=== PATIENT | male | born 1940 | race Caucasian/White ===

== ENCOUNTER 2018-06-10 08:32 | Day surgery (SDC) | payer MEDICARE, SELFPAY ==
--- NOTE | 2018-06-04 09:40 | EKG12_ITS ---
Test Reason : PRE-OP Blood Pressure : / mmHG Vent. Rate : 083 BPM Atrial Rate : 083 BPM P-R Int : 132 ms QRS Dur : 112 ms QT Int : 406 ms P-R-T Axes : 040 040 039 degrees QTc Int : 477 ms Normal sinus rhythm Right bundle branch block Abnormal ECG Confirmed by JEFRY KRIHSNAN, PELON ([id number]), editor & co founder DORA CISNEROS ([id number] on 06/05/2018 1:27:39 PM Referred By: Emilio Howard Confirmed By:PELON CAPPS MD
[2018-06-04 10:11] LABS: Hemoglobin 14.6 g/dl (13.0-16.5); Mean Corp Hgb Conc 33.2 g/gl (32-36); Mean Corpuscular Hgb 29.5 pg (27.0-32.0); Mean Corpuscular Volume 88.9 fL (80-94); Mean Platelet Vol. 10.1 fl (6.2-12.0); Platelet Count 173 K/mm3 (150-450); RBC Distribution Width CV 12.6 % (11.6-14.6); RBC Distribution Width SD 40.1 fl (35.1-43.9); Red Blood Count 4.95 M/mm3 (4.6-6.2); White Blood Count 8.4 K/mm3 (4.4-11.0)
[2018-06-04 10:15] LABS: Scan Indicated on CBC? Y/N NO
[2018-06-04 10:16] LABS: Hemoglobin A1c 6.8 % (4.2-6.3)
[2018-06-04 10:34] LABS: ALB/GLOB Ratio 1.2 RATIO (0.9-2.4); AST(SGOT) 16 U/L (15-37); Alanine Aminotransfer ALT/SGPT 20 U/L (16-61); Alkaline Phosphatase 89 U/L (45-117); Anion Gap 13 (5-15); BUN 24 mg/dL (7-18); BUN/Creat Ratio 18.5 RATIO (10-20); Calcium,Total 8.8 mg/dL (8.5-10.1); Chloride 109 mmol/L (98-107); EST Glomerular Filtration Rate 57 mL/min (>60); Est Glom Filt Rate - Afr Amer 69 mL/min (>60); Globulin 3.2 g/dL (2.2-4.2); Glucose 174 mg/dL (74-106); Protein, Total 7.2 g/dL (6.4-8.2); Sodium Level 140 mmol/L (136-145)
--- NOTE | 2018-06-10 | LIP_PTH ---
PATIENT: POWER TOMAS LOC: [facility] U#:[id number] AGE/SX: 77/M ROOM: RE06/10/[address]: Dr. Emilio Howard MD : [id number] BED: DIS: 06/10/2018 SPEC #: [id number] RECD: 06/10/18 15:17 STATUS: MELODY REJesu #: [id number] LUTHER: 06/10/18 00:[address]: Emilio Howard DEPT: SURGICAL PATHOLOGY RECD BY: Fabian Adams ENTERED: 06/11/18 08:18 SP TYPE: LIPOMA OTHR DR: Dr. Cullen Howard III, MD Tissues: LIPOMA OF CORD Procedures: Surgery Specimen Level III HEADER OPERATION: Hernia, inguinal with mesh PRE-OP DIAGNOSIS: Inguinal hernia of right side TISSUE SUBMITTED: Cord lipoma MICROSCOPIC DIAGNOSIS Cord lipoma: Pieces of mature adipose tissue, consistent with lipoma. SJ:merlin 06/12/18 MICROSCOPIC DESCRIPTION Slides are reviewed. GROSS DESCRIPTION Received in fixative is one container labeled with the patient's name and designated cord lipoma. The specimen consists of two pieces of yellow adipose tissue measuring 8.5 x 3 x 2 cm and 1.5 x 1.5 x 0.5 cm. Sections reveal yellow adipose cut surfaces without areas of hemorrhage, necrosis or cystic degeneration. Loading Inspector sections are submitted in two cassettes. / LEONEL:merlin 06/11/18 TC:1 CPT: 23093
[2018-06-10 08:55] VITALS: BP 134/83; PULSE 90; RESP 14; TEMP 36.5; O2SAT 99; BMI 26.8
[2018-06-10 09:36] LABS: Bedside Glucose 148 mg/dL (70-110)
--- NOTE | 2018-06-10 11:29 | PCM.DC.GS ---
Discharge Diet: Light diet - advance as tolerated - if you have questions about your diet instructions, please talk to you doctor. Discharge Activity: May Not Drive - for 1 week or while taking narcotic pain medicine. May shower in (days): 1 Lifting Restrictions: 10 pounds Call your doctor if your incision/area has: Continuous Slow Oozing, Sudden Increased Bleeding, Increased Pain/ Swelling, Increased Redness, Foul Smelling Discharge Call your doctor if you observe: Fever of 101 or Higher Suture Line Care: Avoid Pulling/Pushing, Avoid Pinching/Bending Additional Dressing/Incision Instructions:: Change or remove dressing in 4 days. Leave steri-strips in place for 1 week. Additional Instructions: You may resume your Xarelto tomorrow-- please. Allergies/Adverse Reactions: Allergies No Known Allergies Allergy (Verified 06/09/18 13:38) Medications to take at Discharge losartan 100 mg tablet 100 mg PO QDAY 05/05/18 metformin 1,000 mg tablet 1,000 mg PO BID 05/05/18 rivaroxaban 20 mg tablet 20 mg PO QDAY 05/05/18 simvastatin 20 mg tablet 20 mg PO QHS 05/05/18 Acetaminophen [Tylenol Arthritis] 650 mg PO Q6H 06/03/18 Hydrocodone Bitart/Apap 5-325 [[place] 5MG-325MG] 1 tablet PO Q6H PRN PRN 3 Days #8 tablet 06/10/18 The following prescriptions were given: Hydrocodone Bitart/Apap 5-325 [[place] 5MG-325MG] 1 tablet PO Q6H PRN PRN 3 Days #8 tablet PRN Reason: Pain Primary Care Physician: Cullen Howard III, MD [Primary Care Provider] - Test Results: Test results from this visit will be discussed in further detail at your follow-up appointment, if applicable. Please Follow Up With: Emilio Howard MD - [phone] When: Call to make an appointment to be seen in about 10 days.
[2018-06-10] MEDS: Cefazolin 2 GM in 0.9% Normal Saline 100 ML IV (11:38)
[2018-06-10] MEDS: Bupivacaine Mpf 0.5% 30 ML VIAL (11:51)
--- NOTE | 2018-06-10 12:43 | PCM.OPRPT ---
Problem List (1) Inguinal hernia of right side without obstruction or gangrene Status: Acute Report of Operation Date of Procedure: 06/10/18 Pre-Operative Diagnosis: Right inguinal hernia Post-Operative Diagnosis: Indirect right inguinal hernia with cord lipoma Surgery/Procedure Performed:: Cherri right inguinal herniorrhaphy Description of Surgical Findings:: Timeout informed consent was obtained. 77-year-old gentleman was taken the operating. He was placed on the table. Underwent monitored anesthesia care local anesthetic. The right groin was sterilely prepped and draped. 1% lidocaine mixed 50-50 with 0.5% Marcaine was used as local anesthetic. A total 34 cc was used. Local was instilled. A transverse incision was made in the right groin. Sharp dissection carried down through the substance tissue. Circumferential control was seen in the cord structures. The ileal nerve identified and protected. Cord lipoma was identified this was dissected to the internal ring and then ligated there with 3-0 Vicryl. Indirect sac was identified it was dissected free to the internal ring and then inverted. The transversalis fascia was approximated to itself from the pubic tubercle to the internal ring with a running 3-0 Ethibond. A preshaped keyhole piece of mesh Bard mesh lot number [id number] reference #[id number] expiry date 02/16/2023 was utilized. It was secured around the internal ring taking care to preserve the ileal nerve inguinal nerve with cord structures. The mesh was secured to itself laterally with a 3-0 Ethibond. The tails were shortened there were tucked beneath the external oblique. The mesh nicely overlaid the pubic tubercle direct and indirect space. It was secured in position with multiple interrupted 3-0 Ethibond sutures securing it to the aponeurosis of the internal/external oblique and the shelving edge of Poupart's. Good placement and approximation was achieved. The external oblique was approximated with interrupted [id number]-gm-[id number] sutures of 3-0 Vicryl. Subcutaneous tissues proximate interrupted 4-0 Monocryl. Skin edges proximate running septic or 4-0 Monocryl. Steri-Strips Telfa and OpSite dressings applied. Sponge and instrument and needle counts were reported the surgeon be correct. Blood loss was minimal. Specimens include the cord lipoma. Drains none. Blood loss minimal. He was taken to the recovery area in satisfactory condition no apparent complication. Emilio Howard M.D., F.A.C.S. Type of Anesthesia:: Local MAC Anesthesiologist: Jacob Ignacio
--- NOTE | 2018-06-10 12:47 | OP.PCM_ITS ---
Problem List (1) Inguinal hernia of right side without obstruction or gangrene Status: Acute Report of Operation Date of Procedure: 06/10/18 Pre-Operative Diagnosis: Right inguinal hernia Post-Operative Diagnosis: Indirect right inguinal hernia with cord lipoma Surgery/Procedure Performed:: Cherri right inguinal herniorrhaphy Description of Surgical Findings:: Timeout informed consent was obtained. 77-year-old gentleman was taken the operating. He was placed on the table. Underwent monitored anesthesia care local anesthetic. The right groin was sterilely prepped and draped. 1% lidocaine mixed 50-50 with 0.5% Marcaine was used as local anesthetic. A total 34 cc was used. Local was instilled. A transverse incision was made in the right groin. Sharp dissection carried down through the substance tissue. Circumferential control was seen in the cord structures. The ileal nerve identified and protected. Cord lipoma was identified this was dissected to the internal ring and then ligated there with 3-0 Vicryl. Indirect sac was identified it was dissected free to the internal ring and then inverted. The transversalis fascia was approximated to itself from the pubic tubercle to the internal ring with a running 3-0 Ethibond. A preshaped keyhole piece of mesh Bard mesh lot number [id number] reference #[id number] expiry date 02/16/2023 was utilized. It was secured around the internal ring taking care to preserve the ileal nerve inguinal nerve with cord structures. The mesh was secured to itself laterally with a 3-0 Ethibond. The tails were shortened there were tucked beneath the external oblique. The mesh nicely overlaid the pubic tubercle direct and indirect space. It was secured in position with multiple interrupted 3-0 Ethibond sutures securing it to the aponeurosis of the internal/ external oblique and the shelving edge of Poupart's. Good placement and approximation was achieved. The external oblique was approximated with interrupted [id number]-tc-etcbe sutures of 3-0 Vicryl. Subcutaneous tissues proximate interrupted 4-0 Monocryl. Skin edges proximate running septic or 4-0 Monocryl. Steri-Strips Telfa and OpSite dressings applied. Sponge and instrument and needle counts were reported the surgeon be correct. Blood loss was minimal. Specimens include the cord lipoma. Drains none. Blood loss minimal. He was taken to the recovery area in satisfactory condition no apparent complication. Emilio Howard M.D., F.A.C.S. Type of Anesthesia:: Local MAC Anesthesiologist: Jacob Ignacio
[2018-06-10 12:52] VITALS: BP 112/70; BP 134/83; PULSE 72; RESP 16; TEMP 36.3; O2SAT 96
[2018-06-10 12:57] VITALS: BP 111/76; BP 134/83; PULSE 76; RESP 16; O2SAT 96
[2018-06-10 13:02] VITALS: BP 117/74; BP 134/83; PULSE 80; RESP 16; O2SAT 96
[2018-06-10 13:07] VITALS: BP 117/74; BP 126/78; BP 134/83; PULSE 70; PULSE 76; RESP 16; TEMP 36.2; O2SAT 96
[2018-06-10 14:33] VITALS: BP 134/83; BP 170/84; PULSE 70; RESP 18; TEMP 36.4; O2SAT 100
== END 2018-06-10 14:36 | disposition home or self-care (01) ==
LOC: SDC 08:33 → AC 08:34
PROVIDERS: Family Provider Family Medicine; PCP Family Medicine; Visit Provider Surgery
PROC: (CPT 49505; principal; 2018-06-10 10:35)
DX: K40.90 Unilateral inguinal hernia, without obstruction or gangrene, not specified as recurrent (principal); D17.6 Benign lipomatous neoplasm of spermatic cord; I10 Essential (primary) hypertension; E11.9 Type 2 diabetes mellitus without complications; M19.90 Unspecified osteoarthritis, unspecified site; F32.9 Major depressive disorder, single episode, unspecified; F41.9 Anxiety disorder, unspecified; E78.00 Pure hypercholesterolemia, unspecified; Z86.718 Personal history of other venous thrombosis and embolism; Z79.01 Long term (current) use of anticoagulants; Z79.899 Other long term (current) drug therapy; Z87.891 Personal history of nicotine dependence
CPT/HCPCS: 49505; 36415; 80053; 82962; 83036; 85027; 88304; 93005; J7120; C1781

== ENCOUNTER 2020-11-23 13:11 | Outpatient (RCR) | payer MEDICARE, SELFPAY ==
[2020-11-23] MEDS: COVID-19 VACC, MRNA(PFIZER)/PF 30 MCG/0.3 ML SYRINGE IM (16:47)
[2020-12-14] MEDS: COVID-19 VACC, MRNA(PFIZER)/PF 30 MCG/0.3 ML SYRINGE IM (15:54)
== END 2021-02-27 23:59 ==
LOC: IMMUN 13:11
PROVIDERS: PCP Family Medicine; Visit Provider Family Medicine
DX: Z23 Encounter for immunization (principal)
CPT/HCPCS: 0001A; 0002A; 91300

== ENCOUNTER 2024-02-07 10:42 | Emergency (ER) | payer MEDICARE, SELFPAY ==
[2024-02-07 10:43] VITALS: BP 97/60; PULSE 113; RESP 16; TEMP 35.9; O2SAT 98; BMI 19.5
--- NOTE | 2024-02-07 11:28 | RAD_ITS ---
STUDY: X-RAY - RIGHT SHOULDER REASON FOR EXAM: Male, 83 years old. In the TECHNIQUE: 4 view(s) of the shoulder. COMPARISON: None. FINDINGS: There is no evidence of fracture or dislocation. There are advanced degenerative changes. There are no radiodense foreign bodies. RAD/Shoulder min 2 Views IMPRESSION: No fracture or dislocation in the right shoulder. Advanced degenerative change. Electronically Signed: Mckinley Kern MD at 13:11 EDT ,
--- NOTE | 2024-02-07 11:28 | CT_ITS ---
STUDY: CT BRAIN WITHOUT CONTRAST REASON FOR EXAM: Male, 83 years old. Injury RADIATION DOSAGE (If Supplied By Facility): CTDIvol = ( 45 ) mGy, DLP = ( 796 ) mGycm TECHNIQUE: Transaxial CT imaging of the brain was performed without administration of intravenous contrast material. Individualized dose optimization techniques were used for this CT. COMPARISON: No relevant prior comparison study available FINDINGS: PARENCHYMA: There is no acute bleed or infarct. There are chronic ischemic and atrophic changes. VENTRICLES: There is no hydrocephalus. MASTOID AIR CELLS AND PARANASAL SINUSES: The visualized paranasal sinuses are clear. The mastoid air cells are clear. BONES: There is no skull fracture. SOFT TISSUES: The visualized soft tissues are within normal limits. CT/Brain/Head without Contrast IMPRESSION: No acute intracranial abnormality. Chronic ischemic and atrophic changes. Electronically Signed: Mckinley Kern MD at 12:50 EDT ,
--- NOTE | 2024-02-07 11:28 | RAD_ITS ---
STUDY: X-RAY - LEFT ELBOW REASON FOR EXAM: Male, 83 years old. Injury TECHNIQUE: 3 view(s) of the elbow. COMPARISON: None. FINDINGS: There is no evidence of fracture or dislocation. There are advanced degenerative changes. There are no radiodense foreign bodies. RAD/Elbow min 3 Views IMPRESSION: No fracture or dislocation in the left elbow. Advanced degenerative change. Electronically Signed: Mckinley Kern MD at 13:10 EDT ,
--- NOTE | 2024-02-07 11:29 | EX.ED.UPPERE ---
HPI History of Present Illness Chief Complaint: Upper Extremity Injury Informant: patient and family Narrative Narrative: 83-year-old male presenting to the emergency room with a chief complaint of fall. Patient lives alone family checks on him frequently. This morning he was taking a shower when he sustained a fall. He states that it is not uncommon for him to have problems with his equilibrium. Reportedly he laid in the shower for about 3 hours. He does not have a life alert did not have access to his phone. Family states that he has fallen 2 times previously in his bedroom. They and him have talked about palliative care. They have talked now about life alert and getting help inside the home which she is now amendable to. Family states that over recently he seems to be repeating himself. Patient notes pain in the left shoulder with swelling and inability to raise his arm up. He notes abrasion to the left elbow right medial distal foot and left knee. He notes he chronically has bursal swelling of the right knee which is not bothersome to him other than from a cosmetic standpoint. He takes Xarelto as a blood thinner. [facility] Medical History Inguinal hernia of right side without obstruction or gangrene Hemorrhoid GERD (gastroesophageal reflux disease) Anxiety Osteoarthritis Back pain Diabetes type 2, controlled DVT (deep venous thrombosis) Home Medications ?Medication ?Instructions ?Recorded ?Last Taken ?Type losartan 100 mg tablet (Cozaar) 100 mg PO QDAY 05/05/18 06/10/18 History metformin 1,000 mg tablet 1,000 mg PO BID 05/05/18 06/10/18 History (Glucophage) rivaroxaban 20 mg tablet (Xarelto) 20 mg PO QDAY 05/05/18 06/08/18 History simvastatin 20 mg tablet (Zocor) 20 mg PO QHS 05/05/18 Unknown History acetaminophen 650 mg 650 mg PO Q6H 06/03/18 06/10/18 History tablet,extended release hydrocodone-acetaminophen 5-325mg 1 tab PO Q6H PRN PRN Pain 3 days 06/10/18 Unknown Rx 5mg-325mg #8 tabs sertraline 50 mg tablet 50 mg PO DAILY 02/07/24 Unknown History Allergy/AdvReac Type Severity Reaction Status Date / Time naproxen Allergy Unknown UNKNOWN Verified 02/07/24 10:49 lisinopril AdvReac COUGH Verified 02/07/24 10:48 Family History Father CVA (cerebral vascular accident) Diabetes Mother CVA (cerebral vascular accident) Surgical History S/P right inguinal hernia repair (~06/15/18) History of left inguinal hernia repair Social History Smoking Status: Former smoker alcohol intake: never ROS ROS ED Constitutional Constitutional ED: Denies chills or weight loss Eyes Eyes: Denies change in vision or diplopia ENT ENT ED: Denies ear pain, rhinorrhea or sore throat Cardiovascular Cardiovascular: Denies chest pain, orthopnea, palpitations or racing heartbeat Respiratory/Chest Respiratory/Chest: Denies cough, dyspnea or orthopnea Gastrointestinal Gastrointestinal: Reports other Details: Decreased appetite. Decreased taste. ; Denies abdominal pain, diarrhea, nausea or vomiting Genitourinary Genitourinary ED: Denies dysuria, hematuria or urinary frequency Musculoskeletal Musculoskeletal: Reports other Details: See history of present illness ; Denies arthralgias or myalgias Integumentary Reports other Details: See history of present illness ; Denies abscess or rash Neurologic Neurologic: Denies headache(s) or weakness Psychiatric Psychiatric: Denies anxiety, depression, suicidal ideation or suicidal thoughts Endocrine Endocrinology: Denies polydipsia, polyphagia or polyuria Allergic/Immunologic Allergic/Immunologic ED: Denies mouth swelling, tongue swelling or urticaria EXAM Physical Exam Const Vital Signs: 02/07/24 10:43 Temperature 96.6 F L Temperature Source Temporal Pulse Rate 113 H Respiratory Rate 16 Blood Pressure 97/60 Blood Pressure Mean 72 Pulse Ox 98 Oxygen Delivery Method Room Air Positive well nourished and well developed General Appearance ED: well developed HEENT Reports normocephalic, head/scalp atraumatic and moist mucous membranes Eyes PERRL and EOMs intact bilaterally Neck no lymphadenopathy, supple and no JVD Resp normal respiratory effort and clear to auscultation bilaterally Cardio regular rate, regular rhythm and no murmurs GI normal to inspection, nondistended, normoactive bowel sounds and non-tender Palpation: soft Back/Spine no CVA tenderness and normal ROM Extremity Extremity Narrative: There are multiple skin tears over the lateral posterior aspect of the left elbow. None of these are able to be repaired. Some have approximated Tatian of the wound edges. Some have completely missing skin. He total area measures about 10 cm in length including the surrounding contusion. Left shoulder demonstrates proximal swelling contusion ecchymosis. He has limited range of motion secondary to pain. I do not appreciate a palpable dislocation. He has an abrasion to the anterior left knee abrasion to the medial distal right foot near the first MTP joint. General Extremety ED: Negative for edema General Extremity: Negative for edema Neuro oriented x3 and CN's II-XII intact bilaterally Sensorium / Orientation: alert Motor Exam: strength 5/5 throughout Psych mental status grossly normal Mood & Affect: Negative for depressed or tearful Skin no rashes or lesions noted and no wounds MDM MDM MDM Narrative Medical decision making narrative: My independent interpretation of the plain films of the left elbow is no acute fracture. My independent interpretation of the bilateral shoulder films which were obtained for comparison is degenerative changes but no acute fracture. CT the brain is negative for acute. Basic blood work showed a elevation in his CPK with KALI. He received 2 L of IV fluids. He has been resting comfortably. I discussed with the patient and his family the difficulties in diagnosing a rotator cuff tear in light of his trauma to the left shoulder which may be related to traumatic bursitis or just the contusion itself. I recommended he drink plenty of fluids over the next 48 hours. I have asked that he follow-up with his family doctor later this week for reassessment. Family and him are agreeable to a increase in safety at home and which includes a medic alert button and help in the home. History & Record Review Discussion w/independent historian: Patient and Family Lab Data Attestation: I reviewed the patient's lab results. Lab results narrative: Clinical Impression(s) from Imaging Studies Brain CT 02/07/24 11:28 IMPRESSION: No acute intracranial abnormality. Chronic ischemic and atrophic changes. Electronically Signed: Mckinley Kern MD at 12:50 EDT , Elbow X-Ray 02/07/24 11:28 IMPRESSION: No fracture or dislocation in the left elbow. Advanced degenerative change. Electronically Signed: Mckinley Kern MD at 13:10 EDT , Shoulder X-Ray 02/07/24 11:28 IMPRESSION: No fracture or dislocation in the right shoulder. Advanced degenerative change. Electronically Signed: Mckinley Kern MD at 13:11 EDT , Laboratory Last Values WBC 13.0 K/mm3 (4.4-11.0) H 02/07/24 12:30 Corrected WBC Cancelled 02/07/24 11:45 RBC 3.96 M/mm3 (4.6-6.2) L 02/07/24 12:30 Hgb 11.6 g/dL (13.0-16.5) L 02/07/24 12:30 Hct 36.0 % (40-54) L 02/07/24 12:30 MCV 90.9 fL (80-94) 02/07/24 12:30 MCH 29.3 pg (27.0-32.0) 02/07/24 12:30 MCHC 32.2 g/dL (32-36) 02/07/24 12:30 RDW Std Deviation 42.0 fl (35.1-43.9) 02/07/24 12:30 RDW Coeff of Marzena 12.7 % (11.6-14.6) 02/07/24 12:30 Plt Count 234 K/mm3 (150-450) 02/07/24 12:30 MPV 9.9 fl (6.2-12.0) 02/07/24 12:30 Immature Gran % (Auto) 0.400 % (0.0-0.9) 02/07/24 12:30 Neut % (Auto) 87.4 % (47-70) H 02/07/24 12:30 Lymph % (Auto) 5.3 % (19-41) L 02/07/24 12:30 [place] % (Auto) 5.9 % (0-10) 02/07/24 12:30 Eos % (Auto) 0.8 % (0-5) 02/07/24 12:30 Baso % (Auto) 0.2 % (0-1) 02/07/24 12:30 Absolute Neuts (auto) 11.4 X10^3/uL (2.0-7.7) H 02/07/24 12:30 Absolute Lymphs (auto) 0.69 X10^3/uL (0.83-4.51) L 02/07/24 12:30 Total Counted Cancelled 02/07/24 11:45 Neutrophils % (Manual) Cancelled 02/07/24 11:45 Band Neutrophils % Cancelled 02/07/24 11:45 Lymphocytes % (Manual) Cancelled 02/07/24 11:45 Monocytes % (Manual) Cancelled 02/07/24 11:45 Eosinophils % (Manual) Cancelled 02/07/24 11:45 Basophils % (Manual) Cancelled 02/07/24 11:45 Metamyelocytes % Cancelled 02/07/24 11:45 Myelocytes % Cancelled 02/07/24 11:45 Promyelocytes % Cancelled 02/07/24 11:45 Blast Cells % Cancelled 02/07/24 11:45 Plasma Cell % (Manual) Cancelled 02/07/24 11:45 Other Cells % Cancelled 02/07/24 11:45 Nucleated RBC % 0 % (0-5) 02/07/24 12:30 Nucleated RBCs/100 WBC Cancelled 02/07/24 11:45 Differential Comment Cancelled 02/07/24 11:45 Diff Path Review Cancelled 02/07/24 11:45 Hypersegmented Neuts Cancelled 02/07/24 11:45 Atypical Lymphocytes Cancelled 02/07/24 11:45 Reactive Lymphocytes Cancelled 02/07/24 11:45 Smudge Cells Cancelled 02/07/24 11:45 Toxic Granulation Cancelled 02/07/24 11:45 Toxic Vacuolation Cancelled 02/07/24 11:45 Dohle Bodies Cancelled 02/07/24 11:45 Sylvain Rods Cancelled 02/07/24 11:45 Platelet Estimate Cancelled 02/07/24 11:45 Plt Morphology Comment Cancelled 02/07/24 11:45 RBC Morphology Cancelled 02/07/24 11:45 RBC Morphology Cancelled 02/07/24 11:45 Polychromasia Cancelled 02/07/24 11:45 Hypochromasia Cancelled 02/07/24 11:45 Basophilic Stippling Cancelled 02/07/24 11:45 Anisocytosis Cancelled 02/07/24 11:45 Microcytosis Cancelled 02/07/24 11:45 Macrocytosis Cancelled 02/07/24 11:45 Spherocytes Cancelled 02/07/24 11:45 Sickle Cells Cancelled 02/07/24 11:45 Target Cells Cancelled 02/07/24 11:45 Tear Drop Cells Cancelled 02/07/24 11:45 Ovalocytes Cancelled 02/07/24 11:45 Stomatocytes Cancelled 02/07/24 11:45 [place] Bodies Cancelled 02/07/24 11:45 [place] Cells Cancelled 02/07/24 11:45 Bite Cells Cancelled 02/07/24 11:45 Crenated Cell Cancelled 02/07/24 11:45 Acanthocytes (Spur) Cancelled 02/07/24 11:45 Rouleaux Cancelled 02/07/24 11:45 Schistocytes Cancelled 02/07/24 11:45 Sodium 137 mmol/L (136-145) 02/07/24 11:45 Potassium 4.7 mmol/L (3.5-5.1) 02/07/24 11:45 Chloride 103 mmol/L (98-107) 02/07/24 11:45 Carbon Dioxide 26.0 mmol/L (21.0-32.0) 02/07/24 11:45 Anion Gap 8 (5-15) 02/07/24 11:45 BUN 48 mg/dL (7-18) H 02/07/24 11:45 Creatinine 1.44 mg/dL (0.70-1.30) H 02/07/24 11:45 Estim Creat Clear Calc 36.54 ml/min 02/07/24 11:45 Est GFR (MDRD) Af Amer 60 mL/min (>60) 02/07/24 11:45 Est GFR (MDRD) Non-Af 50 mL/min (>60) L 02/07/24 11:45 BUN/Creatinine Ratio 33.3 RATIO (10-20) H 02/07/24 11:45 Glucose 174 mg/dL (74-106) H 02/07/24 11:45 Calcium 10.0 mg/dL (8.5-10.1) 02/07/24 11:45 Total Bilirubin 0.40 mg/dL (0.20-1.00) 02/07/24 11:45 AST 36 U/L (15-37) 02/07/24 11:45 ALT 24 U/L (16-61) 02/07/24 11:45 Alkaline Phosphatase 79 U/L (45-117) 02/07/24 11:45 Total Creatine Kinase 747 U/L (39-308) H 02/07/24 11:45 Total Protein 7.4 g/dL (6.4-8.2) 02/07/24 11:45 Albumin 3.4 g/dL (3.2-5.0) 02/07/24 11:45 Globulin 4.0 g/dL (2.2-4.2) 02/07/24 11:45 Albumin/Globulin Ratio 0.8 RATIO (0.9-2.4) L 02/07/24 11:45 EKG Initial EKG: Attestation: I personally reviewed and interpreted this EKG as follows: Comments: Sinus rhythm with a ventricular rate of 93 bpm. PAC noted with compensatory pause. Prior EKG tracings: available for review Prior: Unchanged (04 June 2018) Discharge Plan Triage Chief Complaint: Upper Extremity Injury ED Provider: Dominic Ray Dx/Rx/DC Orders Clinical Impression: Fall, Skin tear of left elbow without complication, Contusion of left shoulder, Rhabdomyolysis, KALI (acute kidney injury) Instructions: ED Rhabdomyolysis, ED Shoulder Bruise Prescriptions: No Action metformin [Glucophage] 1,000 mg tablet 1,000 mg PO BID losartan [Cozaar] 100 mg tablet 100 mg PO QDAY simvastatin [Zocor] 20 mg tablet 20 mg PO QHS rivaroxaban [Xarelto] 20 mg tablet 20 mg PO QDAY acetaminophen 650 MG tablet extended release 650 mg PO Q6H hydrocodone-acetaminophen 1 TABLET tablet 1 tab PO Q6H PRN PRN (Reason: Pain) 3 Days Qty: 8 0RF sertraline 50 mg tablet 50 mg PO DAILY Primary Care Provider: Conner Chase Referrals: Conner Chase MD [Primary Care Provider] - 3-5 Days Activity Restrictions/Additional Instructions: It is very important over the next 48 hours to drink plenty of fluids to keep your urine a clear to light yellow. As we discussed it is difficult to assess whether or not you may have a rotator cuff tear on the shoulder. Would recommend ice. Only use sling as needed to propel prevent frozen shoulder. Antibiotic ointment to the left elbow once a day. Keep it clean and dry. Showers with soap are okay. Print Language: [place] Disposition Disposition: Home, Self Care
--- NOTE | 2024-02-07 11:34 | EKG12_ITS ---
Test Reason : FALL Blood Pressure : / mmHG Vent. Rate : 093 BPM Atrial Rate : 093 BPM P-R Int : 146 ms QRS Dur : 104 ms QT Int : 376 ms P-R-T Axes : 067 051 058 degrees QTc Int : 467 ms Sinus rhythm with Premature supraventricular complexes Low voltage QRS Inferior-posterior infarct , age undetermined Abnormal ECG Confirmed by Todd Gonzalez ([id number]), book or script editor JAREN JOHNSON ([id number]) on 02/09/2024 9:06:38 AM Referred By: Confirmed By:Todd Gonzalez
[2024-02-07] MEDS: 0.9% Normal Saline (1000mL) 1,000 ML 999 ML IV ×2 (11:59→13:16)
[2024-02-07 12:12] LABS: ALB/GLOB Ratio 0.8 RATIO (0.9-2.4); AST(SGOT) 36 U/L (15-37); Alanine Aminotransfer ALT/SGPT 24 U/L (16-61); Albumin, Serum 3.4 g/dL (3.2-5.0); Alkaline Phosphatase 79 U/L (45-117); Anion Gap 8 (5-15); BUN 48 mg/dL (7-18); BUN/Creat Ratio 33.3 RATIO (10-20); CPK Total, Creatine Kinase 747 U/L (39-308); Chloride 103 mmol/L (98-107); Creatinine, Serum 1.44 mg/dL (0.70-1.30); EST Glomerular Filtration Rate 50 mL/min (>60); Est Glom Filt Rate - Afr Amer 60 mL/min (>60); Estimated Creatinine Clearance 36.54 ml/min; Glucose 174 mg/dL (74-106); Potassium 4.7 mmol/L (3.5-5.1); Protein, Total 7.4 g/dL (6.4-8.2); Sodium Level 137 mmol/L (136-145)
[2024-02-07 12:39] LABS: Absolute Lymphocyte Count 0.69 X10^3/uL (0.83-4.51); Absolute Neutrophil Count 11.4 X10^3/uL (2.0-7.7); Basophil# 0.03 X10^3/uL; Basophil% 0.2 % (0-1); Eosinophils% 0.8 % (0-5); Hemoglobin 11.6 g/dL (13.0-16.5); Lymphocyte # 0.69 X10^3/ul (0.83-4.51); Lymphocyte % 5.3 % (19-41); Mean Corp Hgb Conc 32.2 g/dL (32-36); Mean Corpuscular Hgb 29.3 pg (27.0-32.0); Mean Corpuscular Volume 90.9 fL (80-94); Mean Platelet Vol. 9.9 fl (6.2-12.0); Monocyte# 0.77 X10^3/uL; Monocyte% 5.9 % (0-10); NRBC Flagged by Analyzer 0 % (0-5); Neutrophil # 11.39 X10^3/uL (2.7-7.7); Neutrophil % 87.4 % (47-70); Platelet Count 234 K/mm3 (150-450); RBC Distribution Width CV 12.7 % (11.6-14.6); Red Blood Count 3.96 M/mm3 (4.6-6.2)
[2024-02-07 12:43] VITALS: BP 148/85; PULSE 87; RESP 16; O2SAT 98
--- NOTE | 2024-02-07 13:00 | RAD_ITS ---
EXAM: XR LEFT SHOULDER COMPLETE, 2 OR MORE VIEWS CLINICAL INDICATION: Left shoulder pain from injury. TECHNIQUE: Two or more views of the left shoulder. COMPARISON: No relevant prior studies available. FINDINGS: BONES/JOINTS: Unremarkable. No acute fracture. No subluxation. Normal alignment. Preservation of the joint space. No sclerotic or destructive changes observed. SOFT TISSUES: Unremarkable. No soft tissue swelling or gas. No radiopaque foreign body. LUNGS AND PLEURAL SPACES: Prominent pulmonary interstitial markings. RAD/Shoulder min 2 Views IMPRESSION: 1. Negative left shoulder radiographs. 2. Probable chronic interstitial lung disease. Electronically Signed: Pedro Luis Navarro MD at 13:17 EDT ,
[2024-02-07 14:00] VITALS: BP 140/80; PULSE 86; RESP 16; O2SAT 98
[2024-02-07 14:47] VITALS: BP 140/90; PULSE 87; RESP 16; TEMP 36.6; O2SAT 98
== END 2024-02-07 14:58 | disposition home or self-care (01) ==
PROVIDERS: Emergency Provider Emergency Medicine; PCP Family Medicine; Visit Provider Emergency Medicine
DX: S51.012A Laceration without foreign body of left elbow, initial encounter (principal); E11.9 Type 2 diabetes mellitus without complications; S40.012A Contusion of left shoulder, initial encounter; M62.82 Rhabdomyolysis; N17.9 Acute kidney failure, unspecified; W19.XXXA Unspecified fall, initial encounter; Z86.718 Personal history of other venous thrombosis and embolism; Z87.891 Personal history of nicotine dependence
CPT/HCPCS: 70450; 73030; 73080; 80053; 82550; 85025; 93005; 99282; A4216